=== PATIENT | female | born 1990 | race Caucasian/White ===

== ENCOUNTER 2017-03-16 20:37 | Emergency (ER) | payer BC, OTHER ==
[~2017-03-16] VITALS: Ht 165.1 cm; Wt 72.6 kg
--- NOTE | 2017-03-16 21:37 | ED General ---
General Chief Complaint: General Problems/Pain Stated Complaint: LEFT SIDE ABD PAIN Nursing Triage Note: PATIENT STATES THAT SHE HAS BEEN HAVING PAIN FOR 2 WEEKS IN HER LEFT RIB CAGE. SHE HAS A LOT OF STRESS IN HER LIFE AND HAS BEEN PUTTING OFF SEEING A DOCTOR FOR IT. SHE CALLED A NURSE LINE AND THEY SUGGESTED SHE GO TO THE ER. PAIN WORSENS WITH DEEP BREATHS. PAIN IS CONSTANT THOUGH. NOT PAINFUL TO THE TOUCH. Nursing Sepsis Screen: No Definite Risk Source of Information: Patient Exam Limitations: No Limitations History of Present Illness Time Seen by Provider: 21:37 Initial Comments 26-year-old female patient presents to the emergency department with complaints of left sided rib pain/chest pain for 2 weeks. Patient reports being under a lot of stress the last several months. Patient reports left rib pain going from the lower anterior ribs to the posterior lower ribs. Also complains of left-sided neck pain and shoulder pain. Does complain of left-sided neck pain and posterior shoulder pain. Denies any known injury. 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 Patient is from [place] for a temp job at the [email or web address]. Timing/Duration: Other (2 wks) Modifying Factors: worse with Movement, worse with Other (worse with deep breaths and palpation) Allergies and Home Medications Allergies Coded Allergies: No Known Drug Allergies (Unverified , 03/16/17) Home Medications Orphenadrine Citrate 100 Mg Tablet.er, 0.5 TAB PO BID PRN for SPASMS, #10 Ref 0 Prescribed by: CASEY MINER on 03/16/172325 Prednisone 20 Mg Tab, 40 MG PO DAILY, #10 Ref 0 Prescribed by: CASEY MINER on 03/16/172325 Constitutional: No chills, No diaphoresis, dizziness, No fever, No malaise EENTM: no symptoms reported Respiratory: see HPI, No cough, No dyspnea on exertion, No orthopnea, No phlegm , No short of breath, No stridor, No wheezing Cardiovascular: see HPI, chest pain, No edema, No palpitations, No syncope Gastrointestinal: No abdominal pain, No constipation, No diarrhea, No loss of appetite, No melena, No nausea, No vomiting Genitourinary: No decreased output, No discharge, No dysuria, No frequency, No hematuria, No pain : No LMP: Mar 09, 2017 Musculoskeletal: see HPI Skin: no symptoms reported Psychiatric/Neurological: Denies Headache, Denies Numbness, Denies Paresthesia , Denies Tingling, Denies Weakness All Other Systems Reviewed Negative Unless Noted: Yes (Negative excepted noted.) Past Ptzmamb-Xecxkt-Tiejpj Hx Patient Social History Alcohol Use: Rarely Uses Recreational Drug Use: No Smoking Status: Never a Smoker 2nd Hand Smoke Exposure: No Recent Foreign Travel: No Contact w/Someone Who Travel: No Recent Infectious Disease Expo: No Recent Hopitalizations: No Seasonal Allergies Seasonal Allergies: No Surgeries History of Surgeries: No Respiratory History of Respiratory Disorde: No Cardiovascular History of Cardiac Disorders: No Neurological History of Neurological Disord: No Reproductive System : No Last Menstrual Period: Mar 09, 2017 Hx : 0 Hx Reproductive Disorders: No Female Reproductive Disorders: Denies Genitourinary History of Genitourinary Disor: No Gastrointestinal History of Gastrointestinal Di: No Musculoskeletal History of Musculoskeletal Dis: No Endocrine History of Endocrine Disorders: No HEENT History of HEENT Disorders: No Cancer History of Cancer: No Psychosocial History of Psychiatric Problem: No Integumentary History of Skin or Integumenta: No Blood Transfusions History of Blood Disorders: No Adverse Reaction to a Blood Tr: No Reviewed Nursing Assessment Reviewed/Agree w Nursing PMH: Yes Family Medical History Significant Family History: No Pertinent Family Hx Physical Exam Vital Signs Vital Sign - Last 12Hours 03/16/17 21:08 Temp 98.0 Pulse 87 Resp 20 B/P (MAP) 133/70 (91) Pulse Ox 98 Capillary Refill : Less Than 3 Seconds General Appearance: No Apparent Distress, WD/WN HEENT: PERRL/EOMI, Pharynx Normal Neck: Full Range of Motion, Normal Inspection, Supple, Tender Lateral (left posterolateral neck ttp with muscle spasm noted.), No Tender Midline Respiratory: Lungs Clear, Normal Breath Sounds, No Accessory Muscle Use, No Respiratory Distress, Other (left lower anterior/lateral ribs TTP without deformity, swelling, or ecchymosis.) Cardiovascular: Regular Rate, Rhythm, No Edema, No Murmur, Normal Peripheral Pulses Gastrointestinal: Normal Bowel Sounds, No Organomegaly, Soft, No Distended, No Guarding, No Rebound, Tenderness (left subcostal tenderness and left flank tenderness without guarding.) Back: Normal Inspection, No CVA Tenderness, No Vertebral Tenderness, Muscle Spasm (left rhomboid tenderness and muscle spasm) Extremity: Normal Capillary Refill, Normal Inspection, Normal Range of Motion, Other (left posterior shoulder soft tissue tenderness.) Neurologic/Psychiatric: Alert, Oriented x3, No Motor/Sensory Deficits, Normal Mood/Affect, 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 Norm as Tested Skin: Normal Color, Warm/Dry Progress/Results/Core Measures Suspected Sepsis Recent Fever Within 48 Hours: No Infection Criteria Present: None New/Unexplained Altered Menta: No Sepsis Screen: No Definite Risk Sepsis Diagnosis: SIRS Temperature:98.0 Pulse: 87 Respiratory Rate: 20 Laboratory Tests 03/16/17 22:05: White Blood Count 11.2H Blood Pressure 133 /70 Mean: 91 Laboratory Tests 03/16/17 22:05: Creatinine 0.77, Platelet Count 284, Total Bilirubin 0.1 Results/Orders Lab Results Laboratory Tests Test 03/16/17 21:49 03/16/17 22:05 Range/Units Urine Color YELLOW Urine Clarity CLEAR Urine pH 7 5-9 Urine Specific [place] 1.010 L 1.016-1.022 Urine Protein NEGATIVE NEGATIVE Urine Glucose (UA) NEGATIVE NEGATIVE Urine Ketones NEGATIVE NEGATIVE Urine Nitrite NEGATIVE NEGATIVE Urine Bilirubin NEGATIVE NEGATIVE Urine Urobilinogen NORMAL NORMAL MG/DL Urine Leukocyte Esterase 1+ H NEGATIVE Urine RBC (Auto) NEGATIVE NEGATIVE Urine RBC NONE /HPF Urine WBC 0-2 /HPF Urine Squamous Epithelial Cells 25-50 H /HPF Urine Crystals NONE /LPF Urine Bacteria FEW H /HPF Urine Casts NONE /LPF Urine Mucus NEGATIVE /LPF Urine Yeast FEW H /HPF Urine Culture Indicated NO White Blood Count 11.2 H 4.3-11.0 10^3/uL Red Blood Count 4.49 4.35-5.85 10^6/uL Hemoglobin 14.0 11.5-16.0 G/DL Hematocrit 42 35-52 % Mean Corpuscular Volume 93 80-99 FL Mean Corpuscular Hemoglobin 31 25-34 PG Mean Corpuscular Hemoglobin Concent 34 32-36 G/DL Red Cell Distribution Width 12.0 10.0-14.5 % Platelet Count 284 130-400 10^3/uL Mean Platelet Volume 9.5 7.4-10.4 FL Neutrophils (%) (Auto) 36 L 42-75 % Lymphocytes (%) (Auto) 52 H 12-44 % Monocytes (%) (Auto) 10 0-12 % Eosinophils (%) (Auto) 2 0-10 % Basophils (%) (Auto) 1 0-10 % Neutrophils # (Auto) 4.0 1.8-7.8 X 10^3 Lymphocytes # (Auto) 5.8 H 1.0-4.0 X 10^3 Monocytes # (Auto) 1.1 H 0.0-1.0 X 10^3 Eosinophils # (Auto) 0.2 0.0-0.3 10^3/uL Basophils # (Auto) 0.1 0.0-0.1 10^3/uL D-Dimer < 0.27 0.00-0.49 UG/ML Sodium Level 138 135-145 MMOL/L Potassium Level 3.5 L 3.6-5.0 MMOL/L Chloride Level 108 H 98-107 MMOL/L Carbon Dioxide Level 24 21-32 MMOL/L Anion Gap 6 5-14 MMOL/L Blood Urea Nitrogen 11 7-18 MG/DL Creatinine 0.77 0.60-1.30 MG/DL Estimat Glomerular Filtration Rate > 60 BUN/Creatinine Ratio 14 Glucose Level 86 70-105 MG/DL Calcium Level 9.2 8.5-10.1 MG/DL Total Bilirubin 0.1 0.1-1.0 MG/DL Aspartate Amino Transf (AST/SGOT) 14 5-34 U/L Alanine Aminotransferase (ALT/SGPT) 16 0-55 U/L Alkaline Phosphatase 53 40-136 U/L Troponin I < 0.30 <0.30 NG/ML Total Protein 6.7 6.4-8.2 GM/DL Albumin 4.0 3.2-4.5 GM/DL Free Thyroxine 1.01 0.70-1.48 NG/DL TSH [place] Testing 5.38 H 0.35-4.94 UIU/ML My Orders Orders - CASEY MINER Saline Lock/Iv-Start (03/16/17 21:46) Urine Bedside (03/16/17 21:46) Ekg Tracing (03/16/17 21:46) Cbc With Automated Diff (03/16/17 21:46) Comprehensive Metabolic Panel (03/16/17 21:46) Fibrin Degradation Products (03/16/17 21:46) Thyroid Analyzer (03/16/17 21:46) Troponin I (03/16/17 21:46) Ua Culture If Indicated (03/16/17 21:46) Chest 1 View, Ap/Pa Only (03/16/17 21:46) Ns Iv 1000 Ml (Sodium Chloride 0.9%) (03/16/17 22:24) Free T4 (Free Thyroxine) (03/16/17 22:05) Medications Given in ED Current Medications Medications Dose Ordered Sig/Katie Route Start Time Stop Time Status Last Admin Dose Admin Sodium Chloride 1,000 ml @ 0 mls/hr Q0M ONCE IV 03/16/17 22:24 03/16/17 22:26 DC 03/16/17 23:02 0 MLS/HR Vital Signs/I&O Vital Sign - Last 12Hours 03/16/17 21:08 Temp 98.0 Pulse 87 Resp 20 B/P (MAP) 133/70 (91) Pulse Ox 98 Capillary Refill : Less Than 3 Seconds Blood Pressure Mean: 91 Diagnostic Imaging Diagonstic Imaging: Xray Plain Films/CT/US/NM/MRI: chest Comments no acute cardiopulmonary findings Reviewed: Reviewed by Me Departure Impression Impression: Primary Impression: Muscle strain of chest wall Additional Impressions: Strain of rhomboid muscle Brianna infection of genital region Disposition: HOME, SELF-CARE Condition: Improved Departure-Patient Inst. Referrals: NO,LOCAL PHYSICIAN (PCP) Primary Care Physician Patient Instructions: Muscle Strain (DC) Add. Discharge Instructions: All discharge instructions reviewed with patient and/or family. Voiced understanding. Medications as instructed. Tylenol extra strength over-the- counter as directed for pain. Ibuprofen 800 mg by mouth every 8 hours as needed for pain. Consider seeing a chiropractor and/or a massage therapist. Follow-up with your primary care provider as an outpatient for recheck and repeat labs for the thyroid. Heating pads or packs as needed for pain. Return to the emergency department for worsened symptoms or any other concerns. Scripts Orphenadrine Citrate (Orphenadrine Citrate) 100 Mg Tablet.er 0.5 TAB PO BID Y for SPASMS, #10 TAB 0 Refills Prov: CASEY MINER 03/16/17 Prednisone (Prednisone) 20 Mg Tab 40 MG PO DAILY, #10 TAB 0 Refills Prov: CASEY MINER 03/16/17 Work/School Note: Local Medical Staff Listing, School/Childcare Release Date Seen in the Emergency Department: Mar 16, 2017 Time Dismissed from Emergency Department: 23:15 Return to School: Mar 18, 2017 CASEY MINER Mar 16, 2017 21:37
[2017-03-16 22:11] LABS: BILIRUBIN,URINE NEGATIVE (NEGATIVE); KETONES,URINE NEGATIVE (NEGATIVE); LEUKOCYTE ESTERASE ,URINE 1+ (NEGATIVE); NITRITE,URINE NEGATIVE (NEGATIVE); PH,URINE 7 (5-9); PROTEIN,URINE NEGATIVE (NEGATIVE); UROBILINOGEN,URINE NORMAL (NORMAL)
[2017-03-16 22:11] LABS: BASOPHILS # (AUTO) 0.1 10^3/uL (0.0-0.1); BASOPHILS % (AUTO) 1 % (0-10); EOSINOPHILS # (AUTO) 0.2 10^3/uL (0.0-0.3); EOSINOPHILS % (AUTO) 2 % (0-10); LYMPHOCYTES # (AUTO) 5.8 X 10^3 (1.0-4.0); LYMPHOCYTES % (AUTO) 52 % (12-44); MEAN CORPUSCULAR HEMOGLOBIN 31 PG (25-34); MEAN CORPUSCULAR HGB CONC 34 G/DL (32-36); MEAN CORPUSCULAR VOLUME 93 FL (80-99); MEAN PLATELET VOLUME 9.5 FL (7.4-10.4); MONOCYTES # (AUTO) 1.1 X 10^3 (0.0-1.0); MONOCYTES % (AUTO) 10 % (0-12); NEUTROPHILS % (AUTO) 36 % (42-75); PLATELET COUNT 284 10^3/uL (130-400); RED BLOOD COUNT 4.49 10^6/uL (4.35-5.85); WHITE BLOOD COUNT 11.2 10^3/uL (4.3-11.0)
[2017-03-16 22:23] LABS: SQUAMOUS EPITHELIAL CELL,UR 25-50 /HPF; WBC,URINE 0-2 /HPF
[2017-03-16 22:24] LABS: YEAST,URINE FEW /HPF
[2017-03-16] MEDS ORDERED: NS IV 1000 ML 1,000 ML IV ONE (22:24)
[2017-03-16 22:46] LABS: ALANINE AMINOTRANSFERASE 16 U/L (0-55); ANION GAP 6 MMOL/L (5-14); ASPARTATE AMINO TRANSFERASE 14 U/L (5-34); BILIRUBIN,TOTAL 0.1 MG/DL (0.1-1.0); BLOOD UREA NITROGEN 11 MG/DL (7-18); BUN/CREATININE RATIO 14; CALCIUM 9.2 MG/DL (8.5-10.1); CARBON DIOXIDE 24 MMOL/L (21-32); CHLORIDE 108 MMOL/L (98-107); CREATININE SERUM 0.77 MG/DL (0.60-1.30); GFR ESTIMATED > 60; GLUCOSE 86 MG/DL (70-105); POTASSIUM 3.5 MMOL/L (3.6-5.0); SODIUM 138 MMOL/L (135-145); TOTAL PROTEIN 6.7 GM/DL (6.4-8.2)
[2017-03-16 22:47] LABS: TROPONIN I < 0.30 NG/ML (<0.30)
[2017-03-16] MEDS ORDERED: ORPH100T PO (23:26)
[2017-03-16] MEDS ORDERED: PRD20T PO (23:26)
[2017-03-16 23:59] VITALS: BP 133/70
--- NOTE | 2017-03-17 06:03 | Diagnostic Imaging Report ---
Clinical indication: Patient with left chest wall pain x2 weeks. Exam: Portable chest x-ray upright view. Comparisons: None. Findings: Lungs/pleura: Lungs are clear. There is no pneumothorax. There is no pleural effusion. Mediastinum: Unremarkable. Pulmonary vasculature: Unremarkable. Heart: Unremarkable. Bones/extrathoracic soft tissue: Unremarkable. Impression: There is no radiographic evidence of acute cardiopulmonary process. Dictated by: Dictated on workstation # [id number]
== END 2017-03-16 23:57 | disposition home or self-care (01) ==
LOC: ER 20:40
DX: S29.011A Strain of muscle and tendon of front wall of thorax, initial encounter (principal); S46.812A Strain of other muscles, fascia and tendons at shoulder and upper arm level, left arm, initial encounter; B37.3 Candidiasis of vulva and vagina; X58.XXXA Exposure to other specified factors, initial encounter
CPT/HCPCS: 36415; 71010; 80053; 81000; 84439; 84443; 84484; 84703; 85025; 85379; 93005